=== PATIENT | male | born 1990 | race Two or more races ===

== ENCOUNTER 2017-01-08 23:18 | Emergency (ER) | payer SELFPAY ==
[~2017-01-08] VITALS: Ht 170.2 cm; Wt 82.8 kg
[2017-01-08] MEDS ORDERED: MAALOX/HYOSCYAMINE/LIDOCAINE 45 ML BOTTLE ONE (23:51)
[2017-01-08] MEDS ORDERED: ONDANSETRON ODT 8 MG ONE (23:51)
[2017-01-09] MEDS ORDERED: MAALOX/HYOSCYAMINE/LIDOCAINE 45 ML BOTTLE PO ONE
[2017-01-09] MEDS ORDERED: ONDANSETRON ODT 8 MG PO ONE
[2017-01-09 00:09] LABS: BLOOD UREA NITROGEN 13 mg/dL (7-18)
[2017-01-09 00:10] LABS: ASPARTATE AMINO TRANSFERASE 22 U/L (15-37)
[2017-01-09] MEDS ORDERED: HYDROmorphone 1 MG/ML, 1ML ONE (01:18)
[2017-01-09 01:20] VITALS: BP 116/75
[2017-01-09] MEDS ORDERED: HYDROmorphone 1 MG/ML, 1ML IM ONE (01:30)
== END 2017-01-09 01:44 | disposition home or self-care (01) ==
LOC: ED 01-09 01:42
DX: K29.00 Acute gastritis without bleeding (principal); R10.13 Epigastric pain
CPT/HCPCS: 36415; 80053; 83690; 85025; 96372; 99284; J1170; Q0162

== ENCOUNTER 2017-01-09 02:05 | Emergency (ER) | payer SELFPAY ==
[~2017-01-09] VITALS: Ht 170.2 cm; Wt 82.0 kg
[2017-01-09] MEDS ORDERED: ONDANSETRON 2MG/ML, 2ML IVPush ONE (02:30)
[2017-01-09] MEDS ORDERED: SODIUM CHLORIDE 0.9% 1,000ML IVBOLUS ONE (02:30)
[2017-01-09] MEDS ORDERED: SODIUM CHLORIDE FLUSH 10ML SYR IVF ONE (02:30)
[2017-01-09] MEDS ORDERED: HYDROmorphone 1 MG/ML, 1ML IVPush PRN (02:30)
[2017-01-09] MEDS ORDERED: FAMOTIDINE 20 MG/2 ML IVPush ONE (02:30)
[2017-01-09] MEDS ORDERED: FAMOTIDINE 20 MG/2 ML ONE (02:31)
[2017-01-09] MEDS ORDERED: ONDANSETRON 2MG/ML, 2ML ONE (02:31)
[2017-01-09] MEDS ORDERED: HYDROmorphone 1 MG/ML, 1ML ONE (02:31)
[2017-01-09 04:10] VITALS: BP 117/78
[2017-01-09] MEDS ORDERED: OMNIPAQUE 350 MG/ML, 100ML BOTTLE ONE (05:50)
== END 2017-01-09 04:40 | disposition home or self-care (01) ==
LOC: ED 02:56
DX: K29.00 Acute gastritis without bleeding (principal); K27.3 Acute peptic ulcer, site unspecified, without hemorrhage or perforation
CPT/HCPCS: 74177; 96361; 96374; 96375; 99285; J1170; J2405; J7030; Q9967; S0028

== ENCOUNTER 2017-09-04 19:55 | Emergency (ER) | payer OTHER ==
[2017-09-04 20:04] VITALS: BP 125/88
== END 2017-09-04 20:54 | disposition home or self-care (01) ==
LOC: ED 20:42
DX: Z04.8 Encounter for examination and observation for other specified reasons (principal); M25.512 Pain in left shoulder
CPT/HCPCS: 99281

== ENCOUNTER 2018-08-17 21:59 | Emergency (ER) | payer MEDICAID, OTHER ==
[~2018-08-17] VITALS: Ht 170.2 cm; Wt 82.7 kg
[2018-08-17 22:02] VITALS: BP 136/85
== END 2018-08-17 22:38 | disposition home or self-care (01) ==
LOC: ED 22:32
DX: H65.03 Acute serous otitis media, bilateral (principal); J00 Acute nasopharyngitis [common cold]
CPT/HCPCS: 99283

== ENCOUNTER 2019-03-23 15:15 | Emergency (ER) | payer MEDICAID, OTHER ==
[~2019-03-23] VITALS: Ht 170.2 cm; Wt 84.0 kg
[2019-03-23] MEDS ORDERED: FAMOTIDINE 20 MG TABLET PO ONE (15:30)
[2019-03-23] MEDS ORDERED: MAALOX/HYOSCYAMINE/LIDOCAINE 45 ML BTL PO ONE (15:30)
[2019-03-23] MEDS ORDERED: ONDANSETRON ODT 4 MG PO ONE (15:30)
--- NOTE | 2019-03-23 15:30 | NUR ---
Pt to room with c/o abdominal pain since am. Reports Nausea x1 week with no vomiting. Attached to monitor, vss. Questions answered and awaiting orders.
[2019-03-23] MEDS ORDERED: MAALOX/HYOSCYAMINE/LIDOCAINE 45 ML BTL ONE (15:52)
[2019-03-23] MEDS ORDERED: ONDANSETRON ODT 4 MG ONE (15:52)
[2019-03-23] MEDS ORDERED: FAMOTIDINE 20 MG TABLET ONE (15:52)
[2019-03-23 15:54] LABS: BASOPHILS # (AUTO) 0.01 x10^3/uL (0-0.1); BASOPHILS % (AUTO) 0 % (0-1); EOSINOPHILS # (AUTO) 0.12 x10^3/uL (0-0.4); EOSINOPHILS % (AUTO) 1 % (1-7); LYMPHOCYTES # (AUTO) 0.79 x10^3/uL (1-3.4); LYMPHOCYTES % (AUTO) 9 % (22-44); MD NO; MEAN CORPUSCULAR VOLUME 88.3 fL (81-97); MEAN PLATELET VOLUME 8.2 fL (7.4-10.4); MONOCYTES # (AUTO) 0.47 x10^3/uL (0.2-0.8); MONOCYTES % (AUTO) 5 % (2-9); NEUTROPHILS # (AUTO) 7.77 x10^3/uL (1.8-6.8); NEUTROPHILS % (AUTO) 85 % (42-75); PLATELET COUNT 193 x10^3/uL (130-400); RED BLOOD COUNT 5.35 x10^6/uL (4.38-5.82); RED CELL DISTRIBUTION WIDTH 12.6 % (9.4-14.8)
[2019-03-23 16:06] LABS: ALANINE AMINOTRANSFERASE 36 U/L (12-78); ALBUMIN 4.1 g/dL (3.4-5.0); ANION GAP 8 mmol/L (5-15); CHLORIDE 109 mmol/L (98-107); CREATININE 1.19 mg/dL (0.7-1.3)
[2019-03-23 16:07] LABS: ALKALINE PHOSPHATASE 82 U/L (45-117); TOTAL PROTEIN 8.2 g/dL (6.4-8.2)
[2019-03-23] MEDS ORDERED: HYDROmorphone 1 MG/ML, 1ML VIAL ONE (16:26)
[2019-03-23] MEDS ORDERED: HYDROmorphone 1 MG/ML, 1ML INJ IM ONE (16:30)
--- NOTE | 2019-03-23 16:35 | NUR ---
Received orders for pain medication; patient informed and verbalized understanding. Patient medicated. Ultrasound to bedside. Awaiting results.
[2019-03-23] MEDS ORDERED: HYDROmorphone 2 MG/ML, 1ML IM ONE (17:00)
--- NOTE | 2019-03-23 17:36 | NUR ---
Task RN: Discharge instructions discussed with patient including when to return to emergency department, patient verbalizes understanding. Prescriptions provided to patient with instruction for use, patient verbalizes understanding. Patient instructed not to drive while taking hydrocodone, not to drive home today, patient verbalizes understanding, significant other at bedside to drive patient home. Patient dresses independently, ambulates independently with steady gait. Patient states pain level at time of discharge is 1/10.
[2019-03-23 17:37] VITALS: BP 116/76
== END 2019-03-23 17:39 | disposition home or self-care (01) ==
LOC: ED 15:58
DX: K52.9 Noninfective gastroenteritis and colitis, unspecified (principal)
CPT/HCPCS: 36415; 76700; 80053; 83690; 85025; 96372; 99284; J1170; Q0162